=== PATIENT | male | born 1980 | race Two or more races ===

== ENCOUNTER 2022-04-26 14:00 | Emergency (ER) | payer BC, OTHER ==
[~2022-04-26] VITALS: Ht 170.2 cm; Wt 126.6 kg
[2022-04-26 17:10] VITALS: BP 124/85
== END 2022-04-26 17:47 | disposition home or self-care (01) ==
LOC: ER 14:00
DX: M23.91 Unspecified internal derangement of right knee (principal); I10 Essential (primary) hypertension
CPT/HCPCS: 73562

== ENCOUNTER 2025-06-07 04:13 | Emergency (ER) | payer BC, MEDICAID ==
[~2025-06-07] VITALS: Ht 170.2 cm; Wt 128.3 kg
--- NOTE | 2025-06-07 04:41 | ED.PDOC ---
Back pain HPI HPI Comments 45-year-old male presents to the ED chief complaint low back pain x1 day. Patient states symptoms started after lifting something heavy. Rates pain 9/10 on pain scale sharp shooting across lower back. Has tried [id number] medications with little relief. Reports no related symptoms. Denies numbness, weakness, loss of bowel bladder control, saddle anesthesia, or any other concerns. Chief Complaint: Back Pain Time Seen by MD: 04:24 Primary Care Provider: RAGHAVEDNRA Reviewed Notes: Nurses Notes, Medications, Allergies Allergies: Coded Allergies: NO KNOWN ALLERGIES (Unverified , 06/07/25) Information Source: Patient Mode of Arrival: Ambulatory Past Medical History PAST MEDICAL HISTORY: HTN Surgical History: Denies all surgeries Family History Family History: Reviewed,noncontributory to illness Social History Smoker: Non-Smoker Alcohol: Denies ETOH Use Drugs: Denies Drug Use Lives In: Home All Other Systems: Reviewed and Negative (see hpi) Physical Exam General Appearance: No Apparent Distress, Normal HEENT: Pharynx Normal Neck: Full Range of Motion, Non-Tender Respiratory: Lungs Clear, No Respiratory Distress, Normal Breath Sounds Cardiovascular: No Murmur, Normal Peripheral Pulses, Regular Rate/Rhythm Breast Exam: Deferred Gastrointestinal: No Organomegaly, Non Tender, No Pulsatile Mass, Soft Genitalia: Deferred Pelvic: Deferred Rectal: Deferred Extremities: Normal capillary refill, Normal range of motion, No pedal edema Musculoskeletal : Location: Bilateral Extremity Location: Back (Moderate tenderness palpated over bilateral lower back musculature tenderness palpated over L2 through L4 lumbar spine without crepitus or step-offs. Negative straight leg raise test bilateral. Strength sensory motion intact. Positive pedal pulses.) Apperance: Normal Neurologic: Alert, No Motor Deficits, Normal Affect, Normal Mood, No Sensory Deficits Cerebellar Function: Normal Reflexes: NOT DONE Skin: Dry, Normal Color, Warm Lymphatic: No Adenopathy Was a procedure done? Was a procedure done?: No Back Pain Differential Dx Differential Diagnosis: Fracture, Musculoskeletal Pain X-Ray, Labs, Meds, VS Vital Signs Date Time Temp Pulse Resp B/P (MAP) Pulse Ox O2 Delivery O2 Flow Rate FiO2 06/07/25 04:45 98.0 97 16 130/94 (106) 94 98.0 06/07/25 04:14 97.9 117 18 139/104 96 97.9 Current Medications Medications (Trade) Dose Ordered Sig/Cecille Route Start Time Stop Time Status Last Admin Ketorolac Tromethamine (Toradol Injection) 60 mg ONCE ONCE IM 06/07/25 04:30 06/07/25 04:31 DC 06/07/25 04:47 Dexamethasone Sodium Phosphate (Decadron Injection) 10 mg ONCE ONCE IM 06/07/25 04:30 06/07/25 04:31 DC 06/07/25 04:48 Acetaminophen/ Hydrocodone Bitart (Clarence 5/325MG Tab) 1 tab ONCE ONCE PO 06/07/25 04:30 06/07/25 04:31 DC 06/07/25 04:47 X-Ray, Labs, Meds, VS Comment Lumbar spine X RAY: INTERPRETED BY ME. NO ACUTE FINDINGS. NO FRACTURES OR SUBLUXATIONS. PENDING RADIOLOGIST REPORT. Script trial of Medrol Dosepak and muscle relaxer. Advised take medication as prescribed side effects discussed. Advised to alternate between ice and heat. Advised to follow up with your PCP 2-3 days as needed consider further imaging such as MRI if symptoms persist. ER return precautions given patient indicates understanding agrees with discharge plan of care. Images Reviewed?: Images reviewed and evaluated by me Time of 1ST Reevaluation: 04:45 Reevaluation 1ST: Unchanged Time of 2ND Reevaluation: 04:44 Reevaluation 2ND: Improved Patient Education/Counseling: Diagnosis, Treatment, Need For Follow Up Family Education/Counseling: No Family Present SEPSIS Sepsis Screen Date sepsis recognized/suspect: Jun 07, 2025 Time Sepsis recognized/suspect: 415 Recent Procedure: No On Antibiotic Therapy: No Respiratory Rate >20: No Heart Rate >90: No Temp<36 C (96.8 F) or >38.3 C: No SBP <90 or MAP <65 mmHG: No New Acute Mental Status Change: No Is the patient on CPAP, BIPAP,: No Physician Orders Lumbar Spine 3 View (06/07/25 04:24) Vital Signs Date Time Temp Pulse Resp B/P (MAP) Pulse Ox O2 Delivery O2 Flow Rate FiO2 06/07/25 04:45 98.0 97 16 130/94 (106) 94 98.0 06/07/25 04:14 97.9 117 18 139/104 96 97.9 Medications Medications Dose Ordered Sig/Cecille Route Start Time Stop Time Status Last Admin Dose Admin Acetaminophen/ Hydrocodone Bitart 1 tab ONCE ONCE PO 06/07/25 04:30 06/07/25 04:31 DC 06/07/25 04:47 Dexamethasone Sodium Phosphate 10 mg ONCE ONCE IM 06/07/25 04:30 06/07/25 04:31 DC 06/07/25 04:48 Ketorolac Tromethamine 60 mg ONCE ONCE IM 06/07/25 04:30 06/07/25 04:31 DC 06/07/25 04:47 Departure 1 Departure Time of Disposition: 04:45 Impression: Primary Impression: Lumbar sprain Qualified Codes: S33.5XXA - Sprain of ligaments of lumbar spine, initial encounter Disposition: HOME / SELF CARE / HOMELESS Condition: Stable e-Prescriptions Tizanidine Hydrochloride (Tizanidine Hcl) 4 Mg Tab 4 MG PO BID for 7 Days, #14 TAB Prov: JO ANN RICKS 06/07/25 Methylprednisolone (Medrol Dosepak) 4 Mg Cyrus 4 MG PO UD for 6 Days, #21 TAB UAD Prov: JO ANN RICKS 06/07/25 Discharged With: Self Critical Care Note Critical Care Time?: No Stability Stability form required: No JO ANN RICKS Jun 07, 2025 04:41
[2025-06-07 04:45] VITALS: BP 130/94; PULSE 97; TEMP 98; O2SAT 94
[2025-06-07] MEDS: KETOROLAC TROMETH 60MG/2ML VIAL IM ONE (04:47)
[2025-06-07] MEDS: HYDROcodone-ACET 5/325MG TAB PO ONE (04:47)
[2025-06-07 04:53] VITALS: RESP 16
[2025-06-07] MEDS ORDERED: METH4PAK PO (04:53)
[2025-06-07] MEDS ORDERED: TIZA-142 PO (04:53)
--- NOTE | 2025-06-07 05:04 | DVH ---
INDICATION: s/p injury and pain COMPARISON: None TECHNIQUE: 2 views of the lumbar spine were obtained. FINDINGS: The lumbar vertebral alignment is normal. The intervertebral disc spaces are well-maintained. No significant facet arthropathy is noted. No acute fracture, vertebral compression deformity or aggressive osseous lesions. The paravertebral soft tissues are grossly unremarkable. IMPRESSION: 1. No acute fracture.
== END 2025-06-07 05:16 | disposition home or self-care (01) ==
LOC: ER 04:13
DX: S33.5XXA Sprain of ligaments of lumbar spine, initial encounter (principal); I10 Essential (primary) hypertension; X50.0XXA Overexertion from strenuous movement or load, initial encounter; Y93.89 Activity, other specified; Y92.89 Other specified places as the place of occurrence of the external cause; Y99.8 Other external cause status
CPT/HCPCS: 72100; 96372; 99284; J1100; J1885